=== PATIENT | female | born 1960 | race Caucasian/White ===

== ENCOUNTER 2022-07-31 08:27 | Outpatient (CLI) | payer BC | END 2022-07-31 08:28 | disposition home or self-care (01) | LOC: BICMAMMO 08:27 | PROVIDERS: ATTEND Family Medicine | DX: N63.12 Unspecified lump in the right breast, upper inner quadrant (principal); N63.11 Unspecified lump in the right breast, upper outer quadrant | CPT/HCPCS: 77066; G0279 ==

== ENCOUNTER 2024-05-25 16:19 | Emergency (ER) | payer BC ==
[2024-05-25] MEDS ORDERED: KETAMINE 100 MG/ML (5ML VIAL) ONE (19:54)
== END 2024-05-25 21:58 | disposition home or self-care (01) ==
LOC: ERS 16:19
DX: S43.005A Unspecified dislocation of left shoulder joint, initial encounter (principal); W01.0XXA Fall on same level from slipping, tripping and stumbling without subsequent striking against object, initial encounter
CPT/HCPCS: 64450; 96374; 96375; 99152; 99153